=== PATIENT | male | born 1965 | race African-American/Black ===

== ENCOUNTER 2017-12-06 13:00 | Emergency (ER) | payer OTHER ==
[~2017-12-06] VITALS: Ht 177.8 cm; Wt 68.0 kg
[2017-12-06] MEDS ORDERED: ONDANSETRON HCL/PF 4 MG/2 ML VIAL ONE (13:26)
[2017-12-06] MEDS ORDERED: IV NS 0.9% 1,000 ML BAG IV ONE (13:30)
[2017-12-06] MEDS ORDERED: ONDANSETRON HCL/PF 4 MG/2 ML VIAL IVP ONE (13:30)
--- NOTE | 2017-12-06 13:38 | NUR ---
PATIENT TO ED DT GENERALIZED WEAKNESS. PATIENT IS AWAKE AND ALERT. APPEARS IN NO DISTRESS. SKIN IS WARM TO TOUCH AND NON DIAPHORETIC. PATIENT IS AFEBRILE. VSS
[2017-12-06 13:56] LABS: CALCIUM, SERUM 7.9 mg/dL (8.5-10.1); CREATININE 1.3 mg/dL (0.6-1.3); POTASSIUM 3.6 mmol/L (3.5-5.1)
[2017-12-06 14:02] LABS: ALBUMIN 3.9 g/dL (3.4-5.0); BILIRUBIN,DIRECT 0.1 mg/dL (0.0-0.2); BILIRUBIN,TOTAL 0.3 mg/dL (0.2-1.0); TOTAL PROTEIN, SERUM 7.7 g/dL (6.4-8.2)
[2017-12-06 14:15] LABS: BASOPHILS % (AUTO) 0.3 % (0.0-2.0); HEMATOCRIT 47 % (39-51); HEMOGLOBIN 15.5 g/dL (13.5-17.5); LYMPHOCYTES # (AUTO) 2.3 /CMM (0.8-4.8); LYMPHOCYTES % (AUTO) 17.2 % (20.0-44.0); MEAN CORPUSCULAR HEMOGLOBIN 31 PG (26.0-33.0); MEAN CORPUSCULAR HGB CONC 33 g/dl (31.0-36.0); MEAN CORPUSCULAR VOLUME 93 fL (80-96); MONOCYTES # (AUTO) 0.2 /CMM (0.1-1.30); MONOCYTES % (AUTO) 1.2 % (2.0-12.0); NEUTROPHILS # (AUTO) 10.8 /CMM (1.8-8.9); NEUTROPHILS % (AUTO) 81.3 % (43.0-81.0); PLATELET COUNT (AUTO) 374 /CMM (150-450); RDW COEFFICIENT OF VARIATION 14.3 (11.5-15.0); RED BLOOD CELL COUNT(AUTO) 5.08 MIL/uL (4.5-6.0); WHITE BLOOD COUNT (AUTO) 13.3 K/uL (4.3-11.0)
--- NOTE | 2017-12-06 15:14 | NUR ---
PATIENT NOTED RAPID AFIB ON TELE MONITOR. MD QUEZADA AT [email or web address] ONGOING
[2017-12-06] MEDS ORDERED: ADENOSINE 6 MG/2 ML VIAL ONE (15:17)
[2017-12-06] MEDS ORDERED: DILTIAZEM HCL 25 MG IV ONE (15:18)
--- NOTE | 2017-12-06 15:29 | NUR ---
PATIENT STRONGLY REFUSED MEDICATIONS AND TREATMENT ORDERED BY MD QUEZADA. MD QUEZADA EXPLAINED RISKS AND BENEFITS, HOWEVER PATIENT STRONGLY REFUSED/
--- NOTE | 2017-12-06 15:35 | NUR ---
Patient does not wish to proceed with medical care recommended by Dr. QUEZADA. Patient given information related to possible complications, up to and including , which could occur as a result of leaving the hospital at this time. Patient verbalizes understanding of risks involved due to leaving against medical advice. Patient has signed AMA form.
[2017-12-06 15:37] VITALS: BP 125/105
== END 2017-12-06 15:41 | disposition left against medical advice (07) ==
LOC: ER 13:02
DX: R11.2 Nausea with vomiting, unspecified (principal); I48.91 Unspecified atrial fibrillation; R53.1 Weakness; E86.0 Dehydration
CPT/HCPCS: 36415; 80048; 80076; 85025; 85730; 96360; 96374; 99284; A4606; J2405; J7030; Z7610; J0153; J3490